=== PATIENT | male | born 1960 | race American Indian/Alaskan Native ===

== ENCOUNTER 2017-10-07 15:29 | Outpatient (CLI) | payer BC ==
--- NOTE | 2017-10-07 16:52 | XRay Report ---
ROUTINE CHEST, TWO VIEWS: Symptoms of pneumonia. PA and lateral views demonstrate the heart and mediastinal contour to be of normal size and shape. The lungs are clear and fully expanded and the soft tissues and bony structures are normal. IMPRESSION: Normal study.
== END 2017-10-07 15:30 | disposition home or self-care (01) ==
LOC: SPVIMAG 15:29
PROVIDERS: ATTEND Internal Medicine
DX: J18.9 Pneumonia, unspecified organism (principal)
CPT/HCPCS: 71046